=== PATIENT | male | born 1980 | race Caucasian/White ===

== ENCOUNTER 2018-06-14 11:36 | Emergency (ER) | payer OTHER ==
[~2018-06-14] VITALS: Ht 193 cm; Wt 127.3 kg
[2018-06-14 11:40] VITALS: BP 153/90
== END 2018-06-14 13:20 | disposition home or self-care (01) ==
LOC: ED 13:15
DX: S93.401A Sprain of unspecified ligament of right ankle, initial encounter (principal); F17.200 Nicotine dependence, unspecified, uncomplicated; W10.9XXA Fall (on) (from) unspecified stairs and steps, initial encounter; Y93.89 Activity, other specified; Y92.69 Other specified industrial and construction area as the place of occurrence of the external cause; Y99.0 Civilian activity done for income or pay
CPT/HCPCS: 99283